=== PATIENT | female | born 1975 | race American Indian/Alaskan Native ===

== ENCOUNTER 2018-05-30 07:58 | Outpatient (CLI) | payer OTHER ==
--- NOTE | 2018-05-30 13:18 | Ultrasound Report ---
ULTRASOUND ABDOMEN LIMITED: TECHNIQUE: Transabdominal ultrasound with color Doppler interrogation. HISTORY: Hepatitis. COMPARISON: none. FINDINGS: LIVER: Normal. No cirrhotic changes or liver mass is identified on ultrasound. BILIARY SYSTEM: Normal. PANCREAS: Normal. RIGHT KIDNEY: Normal. PROXIMAL AORTA: Normal. ASCITES: None. IMPRESSION: Unremarkable exam.
== END 2018-05-30 07:59 | disposition home or self-care (01) ==
LOC: US 07:58
DX: K75.9 Inflammatory liver disease, unspecified (principal); Z88.2 Allergy status to sulfonamides
CPT/HCPCS: 76705